=== PATIENT | female | born 1980 | race Caucasian/White ===

== ENCOUNTER → 2017-03-26 | Day surgery (SDC) | payer OTHER ==
[~2017-03-26] MED LIST: ALDACTONE100 MG PO; ESTRACE2 M1 PO; HYDROCODON-ACE1 EAC9 PO
--- NOTE | ~2017-03-26 | OR ---
Unit #: [id number] #: [id number] Patient: SANTANA FOX [id number] [place], [place] [address] [id number] MR#: [id number] NAME: SANTANA FOX ROOM: Date of Procedure: 03/26/2017 Admission Date: 03/26/2017 Surgeon: Pieter Barber III, M.D. : 1980 Attending Physician: Pieter Barber III, M.D. Primary Care Physician: Nyasia Arias M.D. OPERATIVE REPORT PREOPERATIVE DIAGNOSIS Left groin pain. POSTOPERATIVE DIAGNOSIS Left groin pain. PROCEDURE PERFORMED Diagnostic laparoscopy. YIELD LOSS INSPECTOR Ian Deleon M.D. SPECIMENS None. COMPLICATIONS None apparent. INDICATIONS FOR PROCEDURE This is a 36-year-old transgender lady, who has been experiencing some left groin pain. She had a previous left open inguinal hernia repair in the past. She is here today for diagnostic laparoscopy, possible left inguinal hernia repair. DESCRIPTION OF PROCEDURE After consent was obtained, the patient was brought to the operating room and placed in the supine position. General anesthetic was administered. Her abdomen and bilateral groin areas were prepped and draped in standard surgical fashion. I made a 1 cm incision just below the umbilicus. I dissected down and elevated the umbilicus with a towel clamp. I used a Veress needle to obtain CO2 pneumoperitoneum. Next, I passed a 5-mm trocar in that area without any difficulty. I performed diagnostic laparoscopy. There was evidence of a prior left groin inguinal hernia repair without any evidence of hernia recurrence. I did not see any hernia on the right side. I did not see any other intraabdominal pathology that would explain left groin pain. The scope was then withdrawn. Pneumoperitoneum was released and the port was removed. I then injected the area with 1% plain lidocaine. I reapproximated the skin edges with interrupted 4-0 Vicryl subcuticular suture. Steri-Strips were then applied. The patient tolerated the procedure without any problems and returned to the recovery room in stable condition. Unit #: [id number] #: [id number] Patient: RUDDY,SANTANA Dictated by... Pieter Barber III, M.D. VCL/luiz TD: 03/26/2017 18:05 JOB #: [id number] OPERATIVE REPORT Page 1 of 1 X Pieter Barber III, MD X PROCEDURE OPERATIVE NOTE
== END | disposition home or self-care (01) ==
LOC: CSUR 06:20
DX: R10.32 Left lower quadrant pain (principal); Z88.1 Allergy status to other antibiotic agents; Z87.891 Personal history of nicotine dependence; Z98.890 Other specified postprocedural states
CPT/HCPCS: J0330; J0690; J1100; J1885; J2250; J2405; J2710; J3010